=== PATIENT | male | born 1965 | race Caucasian/White ===

== ENCOUNTER → 2020-06-15 | Outpatient (CLI) | payer SELFPAY ==
[~2020-06-15] MED LIST: LIPITOR10 MG PO; PREDNISONE10 MG PO; ZESTRIL20 MG PO
== END | disposition home or self-care (01) ==
LOC: COVID19 04:34
PROVIDERS: ATTEND Surgery
DX: Z01.812 Encounter for preprocedural laboratory examination (principal); Z20.828 Contact with and (suspected) exposure to other viral communicable diseases

== ENCOUNTER → 2020-06-20 | Day surgery (SDC) | payer SELFPAY ==
[~2020-06-20] VITALS: Ht 167.6 cm; Wt 79.4 kg
[2020-06-20 08:15] VITALS: BP 122/90
[2020-06-20 09:40] VITALS: BP 98/65
[2020-06-20 09:52] VITALS: BP 104/65
[2020-06-20 10:10] VITALS: BP 111/75
== END ==
LOC: SDC 06-16 09:30
PROVIDERS: ATTEND Surgery
DX: K62.5 Hemorrhage of anus and rectum (principal); I10 Essential (primary) hypertension; Z86.19 Personal history of other infectious and parasitic diseases; Z87.891 Personal history of nicotine dependence; M19.90 Unspecified osteoarthritis, unspecified site; Z79.899 Other long term (current) drug therapy

== ENCOUNTER 2022-06-22 18:17 | Emergency (ER) | payer OTHER ==
[~2022-06-22] VITALS: Ht 167.6 cm; Wt 81.6 kg
[2022-06-22] MEDS ORDERED: ZANAFLEX4 MG PO (21:04)
[2022-06-22] MEDS ORDERED: NAPROSYN500 MG PO (21:04)
== END 2022-06-22 21:20 | disposition home or self-care (01) ==
LOC: ED 18:17
DX: S46.912A Strain of unspecified muscle, fascia and tendon at shoulder and upper arm level, left arm, initial encounter (principal); M25.775 Osteophyte, left foot; Z88.0 Allergy status to penicillin; Z79.899 Other long term (current) drug therapy; W50.0XXA Accidental hit or strike by another person, initial encounter; Y93.89 Activity, other specified; Y92.89 Other specified places as the place of occurrence of the external cause; Y99.8 Other external cause status

== ENCOUNTER 2023-04-29 09:15 | Emergency (ER) | payer OTHER ==
[~2023-04-29] VITALS: Ht 170.1 cm; Wt 77.1 kg
[~2023-04-29 09:15] MED LIST changes: +NAPROSYN500 MG PO; +ZANAFLEX4 MG PO
== END 2023-04-29 11:45 | disposition home or self-care (01) ==
LOC: ED 09:15
DX: S52.121A Displaced fracture of head of right radius, initial encounter for closed fracture (principal); Z88.0 Allergy status to penicillin; I10 Essential (primary) hypertension; M19.90 Unspecified osteoarthritis, unspecified site; X50.0XXA Overexertion from strenuous movement or load, initial encounter; Y93.89 Activity, other specified; Y92.89 Other specified places as the place of occurrence of the external cause; Y99.8 Other external cause status

== ENCOUNTER 2024-05-15 08:48 | Emergency (ER) | payer OTHER ==
[~2024-05-15] VITALS: Ht 167.6 cm; Wt 78.7 kg
[~2024-05-15 08:48] MED LIST changes: +DOXYCYCLINE HY100 M3 PO; +ZESTORETIC 20-1 EACH PO
[2024-05-15] MEDS ORDERED: MELOXICAM15 MG PO (09:00)
[2024-05-15 09:21] LABS: BASO % 0.3 % (0.0-1.0); EOS % 0.1 % (1.0-4.0); HEMATOCRIT 50.2 % (42.0-52.0); LYMPH # 1.5 10*3/uL (1.3-4.4); LYMPH % 11.4 % (27.0-41.0); MEAN CORPUSCULAR HGB 28.6 pg (27.0-31.0); MEAN CORPUSCULAR HGB CONC 32.9 g/dl (33.0-37.0); MEAN PLATELET VOLUME 9.6 fl (9.6-12.3); MONO # 1.3 10*3/uL (0.1-1.0); MONO % 10.2 % (3.0-9.0); NEUT % 77.7 % (47.0-73.0); PLATELET COUNT AUTOMATED 308 10*3/uL (130-400); RED BLOOD COUNT 5.77 10*6/uL (4.50-5.90); RED CELL DISTRI WIDTH 14.3 % (0-14.5); WHITE BLOOD COUNT 12.8 10*3/uL (4.8-10.8)
[2024-05-15 09:42] LABS: BUN 12 mg/dl (9-23); CHLORIDE 98 mmol/L (98-107); POTASSIUM 3.4 mmol/L (3.4-5.1)
[2024-05-15] MEDS ORDERED: ceFAZolin sodium/sodium chlor 10 ML IV ONE (10:10)
[2024-05-15] MEDS ORDERED: CEPHALEXIN500 M1 PO (12:16)
[2024-05-15] MEDS ORDERED: BACITRACIN28.4 GM T (12:18)
== END 2024-05-15 12:34 | disposition home or self-care (01) ==
LOC: ED 08:48
PROVIDERS: Emergency Medicine
DX: L03.116 Cellulitis of left lower limb (principal); I10 Essential (primary) hypertension; M19.90 Unspecified osteoarthritis, unspecified site; Z88.0 Allergy status to penicillin; Z98.890 Other specified postprocedural states